=== PATIENT | male | born 1945 | race Caucasian/White ===

== ENCOUNTER 2016-11-02 15:02 | Emergency (ER) | payer BC, MEDICARE ==
[~2016-11-02] VITALS: Ht 170.2 cm; Wt 95.3 kg
[~2016-11-02 15:02] MED LIST: ALEVE220 MG PO; ASPIRIN 81MG TA81 MG PO; BRILINTA90 MG PO; CENTRUM SILVER1 TAB PO; CLOPIDOGREL75 M2 PO; CRESTOR20 MG PO; DARVOCET-N 1001 EACH PO; FLONASE 50 MCG16 GM; KEFLEX 500MG.500 MG PO; LISINOPRIL40 MG PO; METOPROLOL TART25 MG PO; OMEPRAZOLE40 MG PO; TAMSULOSIN HYD0.4 MG PO; TRILIPIX45 MG PO; VOLTAREN75 MG PO
--- NOTE | 2016-11-02 15:18 | Emergency Room Report ---
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 N Clinical Suspician of Infection? N Mental Status: 1 - Regular (Normal Baseline) Sepsis Risk:Low Sepsis Risk Have you (or family members/close friends) recently traveled outside the [place]? N If Yes, where/when: Have you had exposure to infectious disease within the past month? TB? Other? Specify: Comment The patient complains of pain in his LEFT posterior shoulder since he woke up this morning at 7 AM. Nothing makes it worse or better. No associated symptoms, including no shortness of breath, nausea, diaphoresis. No radiation. He had the same pain last Friday 5 days ago and was diagnosed with a non-ST elevation myocardial infarction. He had a angiogram and had a stent placed in his circumflex artery. He was pain-free after that, this is the first return of pain since then. He has not taken anything for the pain today, no nitroglycerin. He does have nitroglycerin at home. He is on aspirin brilinta and took them both this morning. The pain is not as intense as what he had on Friday. ALLERGIES Coded Allergies: clarithromycin (11/02/16) morphine (11/02/16) sulfamethoxazole (From BACTRIM) (11/02/16) trimethoprim (From BACTRIM) (11/02/16) Home Medications Active Scripts Ticagrelor (Brilinta) 90 MG PO BID #120 TAB Ref 2 Prov: 10/30/16 Reported Medications Naproxen Sodium (Aleve) 220 MG PO Q12HP PRN ARTHRITIS MULTIVIT,THER IRON,CA,FA & MIN (Sm Therapeutic M Tablet) 1 TAB PO DAILY Lisinopril (Lisinopril 40MG) 40 MG PO DAILY #90 TAB 90 Days Rosuvastatin Calcium (Crestor) 20 MG PO QHS Omeprazole (Omeprazole 40MG) 40 MG PO QHS #90 CAP 90 Days TAMSULOSIN HCL (Tamsulosin 0.4MG) 0.4 MG PO QHS Fluticasone Propionate (Flonase 50 Mcg Nasal [place]) 1 SPRAY NA BID ASPIRIN (Aspirin) 81 MG PO DAILY Metoprolol Tartrate 12.5 MG PO BID #90 TAB Discontinued Reported Medications CLOPIDOGREL BISULFATE (Clopidogrel) 75 MG PO DAILY #90 TAB DC: 10/30/16 0847 History Medical History General CAD? Yes Angina: Yes [place]: Yes Hypertension? Yes Hyperlipidemia? Yes CHF? No DVT? No PE? No COPD? No Asthma? No Anemia? No GERD? Yes Gastric ulcers? No GI Bleed? No Hernia? No Thyroid Problems? No Hypothyroidism? No CVA? Yes Seizures? No Diabetes? No Renal Insuffiency? No End Stage Renal Disease? No UTI? No Stones? Yes BPH? No GB Disease: No Nephritic Syndrome? No Asplenia? No Hepatitis? No Sickle Cell Disease? No Arthritis? Yes Migraines? No Cataracts? No Glaucoma? No MRSA? No HIV? No TB? No Anxiety? No Depression? No Cancer? No More? No Immunization Hx Ped.Immunizations UTD Yes DT/Tetanus 11/02/09 Flu 2011-FSN Pneumonia REFUSES Surgical Hx Previous Surgery?Y 4 VESSEL CABG BASKET EXTRACTION X 3 COLON RESECTION LEFT SHOULDER SURGERY Family History Family Hx Diabetes Yes CAD Yes Hypertension Yes Hyperlipidemia Yes Cancer No TB No Social History Smoking Hx Smoker: Never Smoker Tobacco: No Type N/A Packs/day N/A Alcohol Alcohol: No Review of Systems All Other Systems Reviewed and Negative Constitutional denies diaphoresis Respiratory denies cough, denies shortness of breath Gastrointestinal denies nausea, denies vomiting Musculoskeletal see HPI Physical Exam Vital Signs Vital Signs Date Time Temp Pulse Resp B/P Pulse O2 O2 Flow FiO2 Ox Delivery Rate 11/02 1823 61 18 109/64 99 11/02 1700 61 18 132/75 99 11/02 1610 20 11/02 1550 62 18 148/81 98 11/02 1508 98.3 62 18 141/79 98 General Appearance normal appearance, WD/WN Eye Exam - bilateral eye normal exam, bilateral eye PERRL, bilateral eye EOMI Ear, Nose, Throat hearing grossly normal, normal ENT inspection Neck normal inspection, non-tender, supple, full range of motion Respiratory Status Yes: trachea midline, chest symmetrical, non tender chest. No: respiratory distress. Lung Sounds bilateral: normal breath sounds, lungs clear. Cardiovascular normal exam, regular rate/rhythm, no peripheral edema, no gallop, no JVD, no murmur, no rub, normal peripheral pulses Peripheral Pulses Pulses normal Yes Gastrointestinal normal bowel sounds, normal exam, non tender, soft, no organomegaly Back normal inspection, non-tender Extremities non-tender, normal range of motion, normal inspection Neurologic alert, normal exam, oriented x 3 Mental status normal mood/affect Skin intact, normal color, warm/dry Medical Decision Making LABS/Meds/Orders Pt receiving controlled substance in ED? No Results/Orders Laboratory Tests 11/02/16 1816: Troponin I 0.71 H 11/02/16 1515: Creatine Kinase 90, CK-MB (CK-2) Rel Index 0.8, CK and CKMB Interp 0.7, Troponin I 0.60 H 11/02/16 151: Sodium 138, Potassium 3.9, Chloride 101, Carbon Dioxide 29, BUN 21 H, Creatinine 1.0, Estimated Creat Clear 94, Estimated GFR (MDRD) 74, Glucose 115 H, Calcium 9.0, Total Bilirubin 0.5, AST 16, ALT 28, Alkaline Phosphatase 70, Total Protein 6.9, Albumin 4.0, Globulin 2.9, Albumin/Globulin Ratio 1.4, WBC 7.5, RBC 4.71, Hgb 13.8 L, Hct 40.7 L, MCV 86.3, RDW 12.9, Plt Count 222, MPV 7.6, Gran % 71.2, Gran # 5.4, Lymphocytes % 18.4, Monocytes % 5.7, Eosinophils % 4.3, Basophils % 0.5, Lymphocytes # 1.4, Monocytes # 0.4, Eosinophils # 0.3, Basophils # 0.0, PUBS MCHC 34.0, MCH 29.3 Current Medication Orders Sig/Yenny Start time Last Medication Dose Route Stop Time Status Admin Isosorbide 30 MG ONCE ONE 11/02 1929 AC Mononitrate PO 11/02 1930 Nitroglycerin 0 .STK-MED ONE 11/02 182 DC .ROUTE Nitroglycerin 1 IN ONCE ONE 11/02 1645 DC 11/02 TP 11/02 1646 1843 Nitroglycerin 0 .STK-MED ONE 11/02 1641 DC .ROUTE Nitroglycerin 0 .STK-MED ONE 11/02 1609 DC SL Nitroglycerin 0.4 MG [id number] PRN 11/02 1545 AC 11/02 SL 1610 Sodium Chloride 10 ML PRN PRN 11/02 1545 AC IV 11/03 1531 Orders Procedure Date/time Status TROPONIN I 11/02 1758 Complete ELECTROCARDIOGRAM REQUEST 11/02 1531 Active IV SALINE LOCK 11/02 1531 Active 12 LEAD EKG-ALBIN (INITIAL) 11/02 153 Active CHEST-PORTABLE 11/02 153 Active DIRECTOR SALES 11/02 153 Active CBC WITH AUTO DIFF 11/02 153 Complete CARDIAC ENZYMES 11/02 153 Complete CHEM 12 PROFILE 11/02 1530 Complete CM/EKG CM/EKG Comments EKG interpreted by Chandler Hester MD: Rhythm: sinus Rate: 60 [place]: normal Ectopy: none Conduction: Borderline first-degree AV block, incomplete RIGHT bundle branch block ST Segment Changes: none T Wave Changes: none Q Waves: none No evidence of acute ischemia or injury Prior electrocardiagrams reviewed. No change from prior tracings. XRAY/CT/US XRAY/CT/US XRAY chest Comment Chest x-ray interpreted by Chandler Hester M.D. No infiltrate, pneumothorax, pleural effusion, or wide mediastinum. Progress - 7:10 PM: The patient has been pain-free since his nitroglycerin tablet in the emergency room. Second troponin slightly higher than first. I discussed the case with Dr. Hoover. He feels this is likely arteritis or spasm from his stent placement and does not feel the patient needs to be admitted. I discussed this with patient and family. The patient would like to be discharged. Dr. Hoover requests that the patient be started on Imdur 30 mg a day, first dose now. I advised the patient to return the emergency room if he has return of pain. He says he has a follow-up appointment with Dr. Hoover on Friday or Friday. Departure Departure Disposition DC Home or Self Care(routine) Clinical Impression Primary Impression: Left shoulder pain Qualifiers: Chronicity: acute Qualified Code: M25.512 - Pain in left shoulder Secondary Impressions: Coronary artery spasm Condition STABLE Additional Instructions Start Imdur as prescribed. Follow-up with Dr. Hoover as previously arranged. Return to the emergency department if you shoulder pain returns or if chest pain or shortness of breath. Prescriptions Current Visit Scripts ISOSORBIDE MONONITRATE (IMDUR 30MG) 30 MG PO DAILY #30 TAB ED Critical Care Critical Care No at 1930
[2016-11-02 15:37] LABS: HEMOGLOBIN 13.8 g/dL (14.1-18.0); LYMPH # 1.4 K/mm3 (0.7-4.5); LYMPH % 18.4 % (10-50)
[2016-11-02] MEDS ORDERED: IMDUR 30MG. TAB30 MG PO (19:15)
[2016-11-02 19:48] VITALS: BP 116/67
--- NOTE | 2016-11-03 08:15 | RADIOLOGY REPORT PS360 ---
CHEST-PORTABLE HISTORY: Left-sided chest pain L posterior shoulder pain ORDERING PHYSICIAN: Chandler Hester MD PATIENT AGE: 71 years COMPARISON: 10/28/2016 FINDINGS: There has been a prior median sternotomy with CABG. Chronic changes are present in the left lung base. The remaining lungs are clear. No acute bony anomalies. There are postsurgical changes of the left shoulder. IMPRESSION: Prior CABG. No change with no acute finding
== END 2016-11-02 19:49 | disposition home or self-care (01) ==
LOC: ER 15:02
PROVIDERS: Emergency Medicine
DX: M25.512 Pain in left shoulder (principal); I20.1 Angina pectoris with documented spasm; I10 Essential (primary) hypertension; E78.5 Hyperlipidemia, unspecified; I21.4 Non-ST elevation (NSTEMI) myocardial infarction; Z95.5 Presence of coronary angioplasty implant and graft; Z79.82 Long term (current) use of aspirin; Z79.51 Long term (current) use of inhaled steroids; Z79.899 Other long term (current) drug therapy